=== PATIENT | male | born 1945 | race American Indian/Alaskan Native ===

== ENCOUNTER 2020-09-09 11:03 | Inpatient (IN) | payer MEDICARE, OTHER ==
[2020-09-09] MEDS ORDERED: SODIUM CHLORIDE 0.9% 500 ML 500 ML IV ONE (11:23)
--- NOTE | 2020-09-09 11:30 | Emergency Department Report ---
ED Syncope HPI - General Chief Complaint: Dizziness Stated Complaint: SYNCOPE Time Seen by Provider: 09/09/20 11:16 - History of Present Illness Initial Comments: Patient is 75 years old male with history of cardiac transplant in 2012 at [facility], myasthenia gravis. Patient brought to the emergency room via EMS from home for evaluation of 1 episode of syncope. Patient stated that he was sitting in the bathroom and when he stands up he is felt faint and about to fall but he did not. Patient stated that he felt lightheaded and had blurry vision. Patient stated that he still having dizziness but improved. Patient denied any chest pain however he complained of mild shortness of breath. Patient denied any headache, focal weakness numbness or tingling sensation. No bowel or bladder incontinence. Patient also reported no speech problem or ataxia. Stroke scale is 0. Timing/Prior Episodes: no prior history, single episode today Precipitating Factors: Positive: blurred vision, lightheadedness Context: standing Loss of Consciousness: no loss of consciousness Current Symptoms: dizziness, lightheadedness. denies: chest pain, diaphoresis, headache, injury, loss of bladder control, loss of bowel control, motionless, nausea, pale, shallow/rapid breathing, weak/absent pulse, weakness - Related Data Allergies/Adverse Reactions: Allergies furosemide [From Lasix] Allergy (Severe, Verified 09/09/20 11:24) Shortness of Breath Myasthenia gravis pt Sulfa (Sulfonamide Antibiotics) Allergy (Severe, Verified 09/09/20 11:24) Shortness of Breath Myasthenia Gravis pt aspirin Allergy (Intermediate, Verified 09/09/20 11:24) Bleeding ED Review of Systems ROS: Stated complaint: SYNCOPE Other details as noted in HPI Comment: All other systems reviewed and negative Constitutional: denies: chills, fever Respiratory: shortness of breath. denies: cough, SOB with exertion, wheezing Cardiovascular: denies: chest pain Gastrointestinal: denies: abdominal pain, nausea, vomiting Musculoskeletal: denies: back pain Neurological: denies: headache, weakness, numbness, paresthesias, abnormal gait ED Past Medical Hx - Social History Smoking Status: Never Smoker ED Physical Exam - General Limitations: Physical Limitation General appearance: alert, in no apparent distress - Head Head exam: Present: atraumatic, normocephalic, normal inspection - Eye Eye exam: Present: normal appearance, PERRL - ENT ENT exam: Present: normal exam, normal orophraynx, mucous membranes moist - Neck Neck exam: Present: normal inspection, full ROM. Absent: tenderness, meningismus - Respiratory Respiratory exam: Present: normal lung sounds bilaterally - Cardiovascular Cardiovascular Exam: Present: regular rate, normal rhythm, normal heart sounds - GI/Abdominal GI/Abdominal exam: Present: soft, normal bowel sounds. Absent: distended, tenderness, guarding, rebound, rigid, organomegaly, mass, bruit, pulsatile mass, hernia - Extremities Exam Extremities exam: Present: normal inspection, full ROM, normal capillary refill. Absent: tenderness - Back Exam Back exam: Present: normal inspection, full ROM. Absent: CVA tenderness (R), CVA tenderness (L) - Neurological Exam Neurological exam: Present: alert, oriented X3, CN II-XII intact, normal gait, reflexes normal. Absent: motor sensory deficit - Psychiatric Psychiatric exam: Present: normal mood - Skin Skin exam: Present: warm, intact, normal color ED Course Vital Signs 09/09/20 09/09/20 09/09/20 11:23 11:30 11:46 Pulse Rate 81 84 82 Respiratory 12 19 22 Rate Blood Pressure 102/73 108/66 O2 Sat by Pulse 98 99 Oximetry 09/09/20 09/09/20 09/09/20 12:02 12:16 12:30 Pulse Rate 82 79 81 Respiratory 31 H 14 14 Rate Blood Pressure 108/66 108/66 108/66 O2 Sat by Pulse 98 99 98 Oximetry 09/09/20 09/09/20 09/09/20 12:46 13:00 13:16 Pulse Rate 79 78 84 Respiratory 19 16 18 Rate Blood Pressure 108/66 116/82 116/82 O2 Sat by Pulse 97 98 98 Oximetry 09/09/20 09/09/20 09/09/20 13:30 13:46 14:00 Pulse Rate 77 75 74 Respiratory 21 18 16 Rate Blood Pressure 116/82 116/82 140/91 O2 Sat by Pulse 94 93 95 Oximetry 09/09/20 09/09/20 09/09/20 14:16 14:30 14:46 Pulse Rate 81 81 84 Respiratory 16 23 21 Rate Blood Pressure 140/91 140/91 140/91 O2 Sat by Pulse 98 98 96 Oximetry 09/09/20 15:04 Pulse Rate 94 H Respiratory Rate Blood Pressure 140/91 O2 Sat by Pulse Oximetry - Consultations Consultation #1: 09/09/20 15:45 I discussed the patient with ALLYSON Galvan with Dr. Bland, perioperative manager. She advised to admit the patient and they will follow up with the patient. ED Medical Decision Making - Lab Data Result diagrams: 09/09/20 12:22 09/09/20 12:22 - EKG Data -: EKG Interpreted by Me - Radiology Data Radiology results: report reviewed - Medical Decision Making Patient is 75 years old male with history of cardiac transplant in 2011 at [facility], myasthenia gravis. Patient brought to the emergency room via EMS from home for evaluation of 1 episode of syncope. Patient stated that he was sitting in the bathroom and when he stands up he is felt faint and about to fall but he did not. Patient stated that he felt lightheaded and had blurry vision. Patient stated that he still having dizziness but improved. Patient denied any chest pain however he complained of mild shortness of breath. Patient denied any headache, focal weakness numbness or tingling sensation. No bowel or bladder incontinence. Patient also reported no speech problem or ataxia. Stroke scale is 0. EKG showed no ST elevation. Labs reviewed and showed significantly elevated BNP of 39,000. Troponin also elevated. Creatinine and BUN are normal. Patient added that he has been having shortness of breath since Father's Day. He stated that his symptoms getting worse. Patient also stated that he did not have any shortness of breath since his cardiac surgery in 2011. I discussed the patient with Dr. Edwards perioperative manager at [facility]. He reviewed the patient record and stated that he did not have a cardiac transplant he had CABG. So patient will be admitted here to our hospital. I discussed the patient with Dr. Bland group, I spoke to Betty, nurse practitioner. She stated that they will follow up with the patient in the ER. I discussed the patient with Dr. Dickinson, he agreed to admit the patient to medical service for further management. Critical Care Time: Yes Critical care time in (mins) excluding proc time.: 30 Critical care attestation.: If time is entered above; I have spent that time in minutes in the direct care of this critically ill patient, excluding procedure time. ED Disposition Clinical Impression: Syncope, Elevated troponin, New onset of congestive heart failure Disposition: DC-09 OP ADMIT IP TO THIS HOSP Is pt being admited?: Yes Condition: Stable Instructions: Syncope (ED) Referrals: PRIMARY CARE, [Primary Care Provider] - 3-5 Days
--- NOTE | 2020-09-09 12:22 | XRay Report ---
CHEST 1 VIEW INDICATION: syncope. COMPARISON: None FINDINGS: SUPPORT DEVICES: None. HEART: Cardiomegaly with old CABG change. LUNGS/PLEURA: No acute air space or interstitial disease. ADDITIONAL FINDINGS: None. IMPRESSION: 1. No acute findings. Signer Name: Shree Stratton MD Signed: 09/09/2020 12:18 PM Workstation Name: [id number]
--- NOTE | 2020-09-09 12:30 | Cat Scan Report ---
CT head without contrast HISTORY: Syncope X3DAYS. TECHNIQUE: Axial imaging performed from the skull apex through the skull base without the use of con trast. All CT scans at this location are performed using CT dose reduction for ALARA by means of aut omated exposure control. COMPARISON: None FINDINGS: Parenchyma: No acute intracranial hemorrhage or parenchymal abnormality. Old lacunar infarct in the right basal ganglia. Ventricles: There is mild diffuse brain atrophy with commensurate ventricular enlargement which is l ikely age appropriate. Soft tissues: Soft tissues including the orbits appear normal. Bones: No acute osseous abnormality. Sinuses: Small mucous retention cyst in the left maxillary sinus. Remaining sinuses and mastoid air cells are clear. IMPRESSION: No acute abnormality. Signer Name: Shree Stratton MD Signed: 09/09/2020 12:25 PM Workstation Name: [id number]
[2020-09-09 12:32] LABS: Basophils % (Auto) 0.5 % (0.0-1.8); Eosinophils % (Auto) 0.6 % (0.0-4.3); Hematocrit 32.3 % (35.5-45.6); Hemoglobin 10.3 gm/dl (11.8-15.2); Lymphocytes # (Auto) 0.5 K/mm3 (1.2-5.4); Lymphocytes % (Auto) 7.8 % (13.4-35.0); Mean Corpuscular HGB Conc 32 % (32-34); Mean Corpuscular Volume 89 fl (84-94); Monocytes # (Auto) 0.6 K/mm3 (0.0-0.8); Monocytes % (Auto) 10.8 % (0.0-7.3); Platelet Count 170 K/mm3 (140-440); Red Blood Count 3.62 M/mm3 (3.65-5.03)
[2020-09-09 12:40] LABS: Red Cell Distribution Width 20.8 % (13.2-15.2)
[2020-09-09 12:42] LABS: INR 1.53 (0.87-1.13)
[2020-09-09 12:43] LABS: Partial Thromboplastin Time 37.1 Sec. (24.2-36.6)
[2020-09-09 13:31] LABS: Chol/HDL Ratio 2.44 %
--- NOTE | 2020-09-09 15:34 | Cat Scan Report ---
CTA CHEST WITH IV CONTRAST INDICATION: Syncope, elevated D-dimer. TECHNIQUE: Axial CT images were obtained through the chest after injection of IV contrast. 3 plane MIP reconstru ctions were produced. All CT scans at this location are performed using CT dose reduction for ALARA b y means of automated exposure control. COMPARISON: None available. FINDINGS: PULMONARY ARTERIES: No pulmonary emboli. THORACIC AORTA: No acute abnormality. HEART: Moderately enlarged CORONARY ARTERIES: Sternotomy and CABG PLEURA: Small left pleural effusion No pneumothorax. LYMPH NODES: No significant adenopathy. LUNGS: No acute air space or interstitial disease. Calcified left upper lobe granuloma. ADDITIONAL FINDINGS: Moderate elevation left hemidiaphragm UPPER ABDOMEN: 6.7 cm hepatic cyst. SKELETAL STRUCTURES: No significant osseous abnormality. IMPRESSION: 1. No CT evidence for pulmonary embolism. 2. Cardiomegaly with small left pleural effusion. 3. Simple 6.7 cm hepatic cyst Signer Name: Mike Thomas MD Signed: 09/09/2020 3:29 PM Workstation Name: [id number]
[2020-09-09] MEDS ORDERED: ACETAMINOPHEN 325 MG TAB PO PRN (18:07)
[2020-09-09] MEDS ORDERED: ALBUTEROL 2.5 MG/3 ML NEBU IH PRN (18:07)
[2020-09-09] MEDS ORDERED: ONDANSETRON 4 MG/2 ML INJ IV PRN (18:07)
--- NOTE | 2020-09-09 18:12 | History and Physical Report ---
History of Present Illness Chief complaint: I feel weak and then I passed out History of present illness: 75 YO Male with MG, CAD S/P CABG presents to ED for evaluation. Patient reports "I got weak and I passed out." Patient states that shortly after going to the restroom and having a bowel movement he clark from a seated to a standing position and experienced a sudden onset of dizziness and subsequently lost consc iousness. EMS was notified and upon arrival the patient was found to be in distress and subsequently transported to [facility] for further care and evaluation of the aforementioned symptoms. The patient was seen and evaluated in the emergency department. All lab and imaging studies reviewed. Patient found to have orthostatic hypotension. Patient also found to have lab findings as well as clinical symptoms consistent with CHF decompensation. Patient placed in observation status and admitted to telemetry and initiated on CHF protocol. Cardiology team consulted. Patient denies fever, chills, chest pain, palpitation, productive cough, skin rash, recent ill contacts, or known exposure to COVID-19. No prior admission for review. No medication listed at time of admission for reconciliation. Advanced care planning conducted in ED. Past History Past Medical History: CAD Past Surgical History: CABG Social history: single. 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) Family history: hypertension Medications and Allergies Allergies Allergy/AdvReac Type Severity Reaction Status Date / Time furosemide [From Lasix] Allergy Severe Shortness Verified 09/09/20 11:24 of Breath Sulfa (Sulfonamide Allergy Severe Shortness Verified 09/09/20 11:24 Antibiotics) of Breath aspirin Allergy Intermediate Bleeding Verified 09/09/20 11:24 Active Meds: Active Medications Acetaminophen (Acetaminophen 325 Mg Tab) 650 mg PO Q4H PRN PRN Reason: Pain MILD(1-3)/Fever >100.5/ESQUIVEL Albuterol (Albuterol 2.5 Mg/3 Ml Nebu) 2.5 mg IH Q4HRT PRN PRN Reason: Shortness Of Breath Furosemide (Furosemide 20 Mg/2 Ml Inj) 20 mg IV BID@0600,1800 PANKAJ Hydromorphone HCl (Hydromorphone 1 Mg/1 Ml Inj) 0.5 mg IV Q12H PRN PRN Reason: Pain , Severe (7-10) Ondansetron HCl (Ondansetron 4 Mg/2 Ml Inj) 4 mg IV Q8H PRN PRN Reason: Nausea And Vomiting Oxycodone/Acetaminophen (Oxycodone /Acetaminophen 5-325mg Tab) 1 tab PO Q8H PRN PRN Reason: Pain, Moderate (4-6) Sodium Chloride (Sodium Chloride 0.9% 10 Ml Flush Syringe) 10 ml IV BID PANKAJ Sodium Chloride (Sodium Chloride 0.9% 10 Ml Flush Syringe) 10 ml IV PRN PRN PRN Reason: LINE FLUSH Review of Systems Constitutional: no weight loss, no weight gain, no fever, no chills Ears, nose, mouth and throat: no ear pain, no ear discharge, no tinnitis, no nose pain, no nasal congestion Cardiovascular: syncope, no chest pain, no claudication, no high blood pressure Respiratory: no cough, no cough with sputum, no excessive sputum, no hemoptysis Gastrointestinal: no abdominal pain, no nausea, no vomiting, no diarrhea, no change in bowel habits Genitourinary Male: no hematuria, no flank pain, no discharge, no nocturia Musculoskeletal: no neck stiffness, no shooting arm pain, no low back pain, no shooting leg pain, no leg numbness/tingling Integumentary: no rash, no pruritis, no sores Neurological: no head injury, no paralysis, no weakness, no tingling, no syncope Psychiatric: no anxiety, no change in sleep habits, no insomnia, no hypersomnia, no change in appetite, no change in libido Endocrine: no cold intolerance, no polyphagia, no polyuria, no nocturia Hematologic/Lymphatic: no easy bruising, no easy bleeding Allergic/Immunologic: no allergic rhinitis, no wheezing Exam - Constitutional Vitals: Temp Pulse Resp BP Pulse Ox 94 H 21 140/91 96 09/09/20 15:04 09/09/20 14:46 09/09/20 15:04 09/09/20 14:46 General appearance: Present: mild distress - EENT Eyes: Present: PERRL ENT: hearing intact, clear oral mucosa - Neck Neck: Present: supple, normal ROM - Respiratory Respiratory effort: normal Respiratory: bilateral: CTA - Cardiovascular Heart Sounds: Present: S1 & S2. Absent: rub, click - Extremities Extremities: pulses symmetrical, No edema Peripheral Pulses: within normal limits - Abdominal General gastrointestinal: Present: soft, non-tender, non-distended, normal bowel sounds Male genitourinary: Present: normal - Integumentary Integumentary: Present: clear, warm, dry - Musculoskeletal Musculoskeletal: gait normal, strength equal bilaterally - Psychiatric Psychiatric: appropriate mood/affect, intact judgment & insight - Neurologic Neurologic: CNII-XII intact, moves all extremities HEART Score - HEART Score Troponin: Troponin T 0.061 ng/mL (0.00-0.029) H 09/09/20 12:22 Results - Labs CBC & Chem 7: 09/09/20 12:22 09/09/20 12:22 Labs: Abnormal lab results 09/09/20 09/09/20 09/09/20 Range/Units 12:22 12:22 12:22 RBC 3.62 L (3.65-5.03) M/mm3 Hgb 10.3 L (11.8-15.2) gm/dl Hct 32.3 L (35.5-45.6) % RDW 20.8 H (13.2-15.2) % Lymph % (Auto) 7.8 L (13.4-35.0) % [place] % (Auto) 10.8 H (0.0-7.3) % Lymph # (Auto) 0.5 L (1.2-5.4) K/mm3 Seg Neutrophils % 80.3 H (40.0-70.0) % PT 19.0 H (12.2-14.9) Sec. INR 1.53 H (0.87-1.13) APTT 37.1 H (24.2-36.6) Sec. D-Dimer 1679.87 H (0-234) ng/mlDDU Troponin T 0.061 H (0.00-0.029) ng/mL NT-Pro-B Natriuret Pep (0-900) pg/mL HDL Cholesterol 69 H (40-59) mg/dL 09/09/20 Range/Units 12:22 RBC (3.65-5.03) M/mm3 Hgb (11.8-15.2) gm/dl Hct (35.5-45.6) % RDW (13.2-15.2) % Lymph % (Auto) (13.4-35.0) % [place] % (Auto) (0.0-7.3) % Lymph # (Auto) (1.2-5.4) K/mm3 Seg Neutrophils % (40.0-70.0) % PT (12.2-14.9) Sec. INR (0.87-1.13) APTT (24.2-36.6) Sec. D-Dimer (0-234) ng/mlDDU Troponin T (0.00-0.029) ng/mL NT-Pro-B Natriuret Pep 71241 H (0-900) pg/mL HDL Cholesterol (40-59) mg/dL Assessment and Plan - Patient Problems (1) New onset of congestive heart failure Current Visit: Yes Status: Acute Plan to address problem: CHF protocol: Strict I/O, monitor urine output every shift, daily weight, afterload reduction, blood pressure control, echocardiogram ordered and is pending at time of admission, cardiology team consulted, thyroid panel, magnesium level. (2) CAD (coronary artery disease) Current Visit: Yes Status: Acute Qualifiers: Associated angina: without angina Plan to address problem: Risk factor reduction, supportive care (3) NSTEMI (non-ST elevated myocardial infarction) Current Visit: Yes Status: Acute Plan to address problem: Type II non-ST elevation IN: Supportive care, admit to telemetry, serial cardiac enzymes, EKG, remote telemetry, cardiology team consulted. (4) DVT prophylaxis Current Visit: Yes Status: Acute Plan to address problem: SCDs bilateral lower extremities while in bed, patient is ambulatory, prophylactic anticoagulation (5) Advance care planning Current Visit: Yes Status: Acute Plan to address problem: Disease education conducted, care plan discussed, diagnosis discussed, prognosis discussed, patient is full code, patient knowledges understanding and agreement with care plan, +30 minutes.
[2020-09-09 19:06] LABS: Free T4 (Free Thyroxine) 1.49 ng/dL (0.76-1.46)
[2020-09-09] MEDS: HEPARIN 5,000 UNIT/1 ML VIAL SUB-Q SCH (22:11)
[2020-09-09] MEDS: HYDROmorphone 1 MG/1 ML INJ IV PRN (23:54)
[2020-09-10 05:21] LABS: BUN/Creatinine Ratio 11; Blood Urea Nitrogen 12 mg/dL (9-20); Calcium 8.6 mg/dL (8.4-10.2); Hemolysis Index 3
[2020-09-10] MEDS: FUROSEMIDE 20 MG/2 ML INJ IV SCH ×2 (06:07→06:11)
--- NOTE | 2020-09-10 09:52 | Progress Note ---
Assessment and Plan Assessment and plan: Acute on chronic systolic heart failure. Patient with previous diagnosis and followed at the [facility]. Coronary artery disease NSTEMI Autonomic imbalance/syncope. Right shoulder pain 09/10/2020. Follow-up echocardiogram. Cardiology consultation pending. BNP significantly elevated at 39,[address] scan reveals only small left pleural effusion. Elevated D-dimer but CTA negative for PE. Etiology of syncope secondary to orthostasis and vasovagal from bowel movement. Await cardiology recommendations. Check right shoulder x-ray. History Interval history: No new issues overnight. Hospitalist Physical - Constitutional Vitals: Temp Pulse Resp BP Pulse Ox 98.2 F 92 H 16 135/92 96 09/10/20 08:10 09/10/20 08:18 09/10/20 08:10 09/10/20 08:10 09/10/20 08:10 General appearance: Present: no acute distress - EENT Eyes: Present: PERRL, EOM intact ENT: hearing intact, clear oral mucosa, dentition normal - Neck Neck: Present: supple, normal ROM - Respiratory Respiratory effort: normal Respiratory: bilateral: CTA - Cardiovascular Rhythm: regular Heart Sounds: Present: S1 & S2. Absent: gallop, rub - Extremities Extremities: no ischemia, No edema, Full ROM - Abdominal General gastrointestinal: soft, non-tender, non-distended, normal bowel sounds - Integumentary Integumentary: Present: clear, warm, dry - Neurologic Neurologic: CNII-XII intact, moves all extremities HEART Score - HEART Score Troponin: Troponin T 0.061 ng/mL (0.00-0.029) H 09/09/20 12:22 Results - Labs CBC & Chem 7: 09/09/20 12:22 09/10/20 04:15 Labs: Laboratory Last Values WBC 5.8 K/mm3 (4.5-11.0) 09/09/20 12:22 RBC 3.62 M/mm3 (3.65-5.03) L 09/09/20 12:22 Hgb 10.3 gm/dl (11.8-15.2) L 09/09/20 12:22 Hct 32.3 % (35.5-45.6) L 09/09/20 12:22 MCV 89 fl (84-94) 09/09/20 12:22 MCH 29 pg (28-32) 09/09/20 12:22 MCHC 32 % (32-34) 09/09/20 12:22 RDW 20.8 % (13.2-15.2) H 09/09/20 12:22 Plt Count 170 K/mm3 (140-440) 09/09/20 12:22 Lymph % (Auto) 7.8 % (13.4-35.0) L 09/09/20 12:22 [place] % (Auto) 10.8 % (0.0-7.3) H 09/09/20 12:22 Eos % (Auto) 0.6 % (0.0-4.3) 09/09/20 12:22 Baso % (Auto) 0.5 % (0.0-1.8) 09/09/20 12:22 Lymph # (Auto) 0.5 K/mm3 (1.2-5.4) L 09/09/20 12:22 [place] # (Auto) 0.6 K/mm3 (0.0-0.8) 09/09/20 12:22 Eos # (Auto) 0.0 K/mm3 (0.0-0.4) 09/09/20 12:22 Baso # (Auto) 0.0 K/mm3 (0.0-0.1) 09/09/20 12:22 Seg Neutrophils % 80.3 % (40.0-70.0) H 09/09/20 12:22 Seg Neutrophils # 4.7 K/mm3 (1.8-7.7) 09/09/20 12:22 PT 19.0 Sec. (12.2-14.9) H 09/09/20 12:22 INR 1.53 (0.87-1.13) H 09/09/20 12:22 APTT 37.1 Sec. (24.2-36.6) H 09/09/20 12:22 D-Dimer 1679.87 ng/mlDDU (0-234) H 09/09/20 12:22 Sodium 143 mmol/L (137-145) 09/10/20 04:15 Potassium 3.7 mmol/L (3.6-5.0) 09/10/20 04:15 Chloride 108.0 mmol/L (98-107) H 09/10/20 04:15 Carbon Dioxide 25 mmol/L (22-30) 09/10/20 04:15 Anion Gap 14 mmol/L 09/10/20 04:15 BUN 12 mg/dL (9-20) 09/10/20 04:15 Creatinine 1.1 mg/dL (0.8-1.3) 09/10/20 04:15 Estimated GFR > 60 ml/min 09/10/20 04:15 BUN/Creatinine Ratio 11 % 09/10/20 04:15 Glucose 78 mg/dL (75-100) 09/10/20 04:15 Calcium 8.6 mg/dL (8.4-10.2) 09/10/20 04:15 Magnesium 1.90 mg/dL (1.7-2.3) 09/09/20 18:19 Troponin T 0.061 ng/mL (0.00-0.029) H 09/09/20 12:22 NT-Pro-B Natriuret Pep 84218 pg/mL (0-900) H 09/09/20 12:22 Triglycerides 80 mg/dL (2-149) 09/09/20 12:22 Cholesterol 169 mg/dL (50-199) 09/09/20 12:22 LDL Cholesterol Direct 92 mg/dL (50-130) 09/09/20 12:22 HDL Cholesterol 69 mg/dL (40-59) H 09/09/20 12:22 Cholesterol/HDL Ratio 2.44 % 09/09/20 12:22 TSH 1.530 mlU/mL (0.270-4.200) 09/09/20 18:19 Free T4 1.49 ng/dL (0.76-1.46) H 09/09/20 18:19 [place]/IV: Voiding Method Urinal Active Medications - Current Medications Current Medications: Generic Name Dose Route Start Last Admin Trade Name Freq PRN Reason Stop Dose Admin Acetaminophen 650 mg 09/09/20 18:07 Acetaminophen 325 Mg Tab PO Q4H PRN Pain MILD(1-3)/Fever >100.5/ESQUIVEL Albuterol 2.5 mg 09/09/20 18:07 Albuterol 2.5 Mg/3 Ml Nebu IH Q4HRT PRN Shortness Of Breath Heparin Sodium (Porcine) 5,000 unit 09/09/20 22:00 09/09/20 22:11 Heparin 5,000 Unit/1 Ml Vial SUB-Q 5,000 unit Q12HR PANKAJ Administration Hydromorphone HCl 0.5 mg 09/09/20 18:07 09/09/20 23:54 Hydromorphone 1 Mg/1 Ml Inj IV 0.5 mg Q12H PRN Administration Pain , Severe (7-10) Ondansetron HCl 4 mg 09/09/20 18:07 Ondansetron 4 Mg/2 Ml Inj IV Q8H PRN Nausea And Vomiting Oxycodone/Acetaminophen 1 tab 09/09/20 18:07 Oxycodone /Acetaminophen 5-325mg Tab PO Q8H PRN Pain, Moderate (4-6) Sodium Chloride 10 ml 09/09/20 22:00 09/09/20 22:55 Sodium Chloride 0.9% 10 Ml Flush Syringe IV 10 ml BID PANKAJ Administration Sodium Chloride 10 ml 09/09/20 18:07 Sodium Chloride 0.9% 10 Ml Flush Syringe IV PRN PRN LINE FLUSH
[2020-09-10] MEDS: HEPARIN 5,000 UNIT/1 ML VIAL SUB-Q SCH ×2 (10:37→22:01)
--- NOTE | 2020-09-10 10:57 | XRay Report ---
RIGHT SHOULDER 3 VIEWS INDICATION: Right shoulder pain. COMPARISON: None. IMPRESSION: The right humeral head appears slightly high riding with respect to the glenoid which co uld represent a chronic rotator cuff tear. Mild osteoarthritic changes are noted at the right should er. No acute osseous injury or bone lesion is detected. The soft tissues are unremarkable. If further evaluation is needed, MRI right shoulder without contrast or MRI right shoulder arthrogram should pr ovide the most information. Signer Name: Vito Simental Jr, MD Signed: 09/10/2020 10:53 AM Workstation Name: [id number]
--- NOTE | 2020-09-10 11:48 | Consultation ---
History of Present Illness Consult date: 09/10/20 Consult reason: syncope History of present illness: 75-year old male admitted for near syncope. Patient reports dizziness and weakness after standing from the commode. Denies loss of consciousness. Denies chest pain, denies unusual shortness of breath, and denies palpitations. EMS was called and he was brought in for evaluation. Chest x-ray shows cardiomegaly but no evidence of interstitial edema. CTA of the chest reports no evidence of pulm onary embolism. Patient has multiple medical problems and is followed by the [place]. He has a history of ischemic cardiomyopathy, coronary artery diseae with remote 3 vessel bypass grafting. He has declined recommendations for an ICD implant for primary prevention. He had no recent cardiac workup. He in on chronic prednisone for Myasthenia gravis. Co-morbidities includes Hypertension, he uses Cpap for Sleep apnea and Pulmonary embolism and DVT for which he takes Eliquis for anticoagulation. Past History Past Medical History: CAD, hypertension, other (Sleep apnea, Myasthenia gravis, Pulmonary embolism and DVT ) Past Surgical History: CABG Social history: single. 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) Family history: hypertension Medications and Allergies Allergies Allergy/AdvReac Type Severity Reaction Status Date / Time furosemide [From Lasix] Allergy Severe Shortness Verified 09/09/20 11:24 of Breath Sulfa (Sulfonamide Allergy Severe Shortness Verified 09/09/20 11:24 Antibiotics) of Breath aspirin Allergy Intermediate Bleeding Verified 09/09/20 11:24 Home Medications Medication Instructions Recorded Confirmed Last Taken Type No Known Home Medications [No 09/10/20 09/10/20 Unknown History Reported Home Medications] Active Meds: Active Medications Acetaminophen (Acetaminophen 325 Mg Tab) 650 mg PO Q4H PRN PRN Reason: Pain MILD(1-3)/Fever >100.5/ESQUIVEL Albuterol (Albuterol 2.5 Mg/3 Ml Nebu) 2.5 mg IH Q4HRT PRN PRN Reason: Shortness Of Breath Heparin Sodium (Porcine) (Heparin 5,000 Unit/1 Ml Vial) 5,000 unit SUB-Q Q12HR PANKAJ Last Admin: 09/10/20 10:37 Dose: 5,000 unit Documented by: Hydromorphone HCl (Hydromorphone 1 Mg/1 Ml Inj) 0.5 mg IV Q12H PRN PRN Reason: Pain , Severe (7-10) Last Admin: 09/09/20 23:54 Dose: 0.5 mg Documented by: Ondansetron HCl (Ondansetron 4 Mg/2 Ml Inj) 4 mg IV Q8H PRN PRN Reason: Nausea And Vomiting Oxycodone/Acetaminophen (Oxycodone /Acetaminophen 5-325mg Tab) 1 tab PO Q8H PRN PRN Reason: Pain, Moderate (4-6) Sodium Chloride (Sodium Chloride 0.9% 10 Ml Flush Syringe) 10 ml IV BID PANKAJ Last Admin: 09/10/20 10:37 Dose: 10 ml Documented by: Sodium Chloride (Sodium Chloride 0.9% 10 Ml Flush Syringe) 10 ml IV PRN PRN PRN Reason: LINE FLUSH Review of Systems Cardiovascular: dyspnea on exertion, no chest pain, no palpitations, no edema, no syncope, no shortness of breath Physical Examination Vital Signs Pulse Resp 81 12 09/09/20 11:23 09/09/20 11:23 General appearance: no acute distress HEENT: Positive: PERRL Neck: Positive: trachea midline Cardiac: Positive: Reg Rate and Rhythm Lungs: Positive: Normal Breath Sounds Neuro: Positive: Grossly Intact Extremities: Absent: edema Results 09/09/20 12:22 09/10/20 04:15 Coagulation 09/09/20 Range/Units 12:22 PT 19.0 H (12.2-14.9) Sec. INR 1.53 H (0.87-1.13) APTT 37.1 H (24.2-36.6) Sec. Lipids 09/09/20 Range/Units 12:22 Triglycerides 80 (2-149) mg/dL Cholesterol 169 (50-199) mg/dL HDL Cholesterol 69 H (40-59) mg/dL Cholesterol/HDL Ratio 2.44 % CBC 09/09/20 Range/Units 12:22 WBC 5.8 (4.5-11.0) K/mm3 RBC 3.62 L (3.65-5.03) M/mm3 Hgb 10.3 L (11.8-15.2) gm/dl Hct 32.3 L (35.5-45.6) % Plt Count 170 (140-440) K/mm3 Lymph # (Auto) 0.5 L (1.2-5.4) K/mm3 [place] # (Auto) 0.6 (0.0-0.8) K/mm3 Eos # (Auto) 0.0 (0.0-0.4) K/mm3 Baso # (Auto) 0.0 (0.0-0.1) K/mm3 Comprehensive Metabolic Panel 09/09/20 09/10/20 Range/Units 12:22 04:15 Sodium 144 143 (137-145) mmol/L Potassium 4.0 3.7 (3.6-5.0) mmol/L Chloride 106.9 108.0 H (98-107) mmol/L Carbon Dioxide 27 25 (22-30) mmol/L BUN 16 12 (9-20) mg/dL Creatinine 1.2 1.1 (0.8-1.3) mg/dL Glucose 94 78 (75-100) mg/dL Calcium 9.0 8.6 (8.4-10.2) mg/dL Assessment and Plan Near syncope likely vasovagal Hx of Ischemic CMP declined recommendations for ICD implant in the past Hx of CAD with 3v CABG in 2011 [facility] allergy Myasthenia gravis on chronic prednisone Hypertension Sleep apnea Hx of Pulmonary embolism and DVT Eliquis for anticoagulation. Resume medical therapy for ischemic cardiomyopathy and coronary artery disease. Will get an echocardiogram for LVEF assessment.
[2020-09-10] MEDS: HYDROmorphone 1 MG/1 ML INJ IV PRN (21:59)
[2020-09-10] MEDS: carvediloL 6.25 MG TAB PO SCH (22:00)
--- NOTE | 2020-09-11 08:44 | Progress Note ---
Assessment and Plan Assessment and plan: Acute on chronic systolic heart failure. Patient with previous diagnosis and followed at the [place]. Coronary artery disease. History of CABG X3 2012 NSTEMI Ischemic cardiomyopathy. EF 25% Autonomic imbalance/syncope. Right shoulder pain 09/10/2020. Follow-up echocardiogram. Cardiology consultation pending. BNP significantly elevated at 39,[address] scan reveals only small left pleural effusion. Elevated D-dimer but CTA negative for PE. Etiology of syncope secondary to orthostasis and vasovagal from bowel movement. Await cardiology recommendations. Check right shoulder x-ray. 09/11/2020. Continue guideline directed medical therapy for coronary artery disease and acute on chronic systolic heart failure. Cardiology recommends outpatient 30-day event monitor for possible ventricular dysrhythmia. Right shoulder x-ray reveals possible rotator cuff tear. MRI of the right shoulder as an outpatient History Interval history: No new issues overnight. Hospitalist Physical - Constitutional Vitals: Temp Pulse Resp BP Pulse Ox 98.4 F 92 H 18 140/100 96 09/11/20 04:28 09/11/20 08:32 09/11/20 04:28 09/11/20 04:28 09/11/20 04:28 General appearance: Present: no acute distress - EENT Eyes: Present: PERRL, EOM intact ENT: hearing intact, clear oral mucosa, dentition normal - Neck Neck: Present: supple, normal ROM - Respiratory Respiratory effort: normal Respiratory: bilateral: CTA - Cardiovascular Rhythm: regular Heart Sounds: Present: S1 & S2. Absent: gallop, rub - Extremities Extremities: no ischemia, No edema, Full ROM - Abdominal General gastrointestinal: soft, non-tender, non-distended, normal bowel sounds - Integumentary Integumentary: Present: clear, warm, dry - Neurologic Neurologic: CNII-XII intact, moves all extremities HEART Score - HEART Score Troponin: Troponin T 0.061 ng/mL (0.00-0.029) H 09/09/20 12:22 Results - Labs CBC & Chem 7: 09/09/20 12:22 09/10/20 04:15 Labs: Laboratory Last Values WBC 5.8 K/mm3 (4.5-11.0) 09/09/20 12:22 RBC 3.62 M/mm3 (3.65-5.03) L 09/09/20 12:22 Hgb 10.3 gm/dl (11.8-15.2) L 09/09/20 12:22 Hct 32.3 % (35.5-45.6) L 09/09/20 12:22 MCV 89 fl (84-94) 09/09/20 12:22 MCH 29 pg (28-32) 09/09/20 12:22 MCHC 32 % (32-34) 09/09/20 12:22 RDW 20.8 % (13.2-15.2) H 09/09/20 12:22 Plt Count 170 K/mm3 (140-440) 09/09/20 12:22 Lymph % (Auto) 7.8 % (13.4-35.0) L 09/09/20 12:22 [place] % (Auto) 10.8 % (0.0-7.3) H 09/09/20 12:22 Eos % (Auto) 0.6 % (0.0-4.3) 09/09/20 12:22 Baso % (Auto) 0.5 % (0.0-1.8) 09/09/20 12:22 Lymph # (Auto) 0.5 K/mm3 (1.2-5.4) L 09/09/20 12:22 [place] # (Auto) 0.6 K/mm3 (0.0-0.8) 09/09/20 12:22 Eos # (Auto) 0.0 K/mm3 (0.0-0.4) 09/09/20 12:22 Baso # (Auto) 0.0 K/mm3 (0.0-0.1) 09/09/20 12:22 Seg Neutrophils % 80.3 % (40.0-70.0) H 09/09/20 12:22 Seg Neutrophils # 4.7 K/mm3 (1.8-7.7) 09/09/20 12:22 PT 19.0 Sec. (12.2-14.9) H 09/09/20 12:22 INR 1.53 (0.87-1.13) H 09/09/20 12:22 APTT 37.1 Sec. (24.2-36.6) H 09/09/20 12:22 D-Dimer 1679.87 ng/mlDDU (0-234) H 09/09/20 12:22 Sodium 143 mmol/L (137-145) 09/10/20 04:15 Potassium 3.7 mmol/L (3.6-5.0) 09/10/20 04:15 Chloride 108.0 mmol/L (98-107) H 09/10/20 04:15 Carbon Dioxide 25 mmol/L (22-30) 09/10/20 04:15 Anion Gap 14 mmol/L 09/10/20 04:15 BUN 12 mg/dL (9-20) 09/10/20 04:15 Creatinine 1.1 mg/dL (0.8-1.3) 09/10/20 04:15 Estimated GFR > 60 ml/min 09/10/20 04:15 BUN/Creatinine Ratio 11 % 09/10/20 04:15 Glucose 78 mg/dL (75-100) 09/10/20 04:15 Calcium 8.6 mg/dL (8.4-10.2) 09/10/20 04:15 Magnesium 1.90 mg/dL (1.7-2.3) 09/09/20 18:19 Troponin T 0.061 ng/mL (0.00-0.029) H 09/09/20 12:22 NT-Pro-B Natriuret Pep 49250 pg/mL (0-900) H 09/09/20 12:22 Triglycerides 80 mg/dL (2-149) 09/09/20 12:22 Cholesterol 169 mg/dL (50-199) 09/09/20 12:22 LDL Cholesterol Direct 92 mg/dL (50-130) 09/09/20 12:22 HDL Cholesterol 69 mg/dL (40-59) H 09/09/20 12:22 Cholesterol/HDL Ratio 2.44 % 09/09/20 12:22 TSH 1.530 mlU/mL (0.270-4.200) 09/09/20 18:19 Free T4 1.49 ng/dL (0.76-1.46) H 09/09/20 18:19 [place]/IV: Voiding Method Urinal Active Medications - Current Medications Current Medications: Generic Name Dose Route Start Last Admin Trade Name Freq PRN Reason Stop Dose Admin Acetaminophen 650 mg 09/09/20 18:07 Acetaminophen 325 Mg Tab PO Q4H PRN Pain MILD(1-3)/Fever >100.5/ESQUIVEL Albuterol 2.5 mg 09/09/20 18:07 Albuterol 2.5 Mg/3 Ml Nebu IH Q4HRT PRN Shortness Of Breath Carvedilol 6.25 mg 09/10/20 22:00 09/10/20 22:00 Carvedilol 6.25 Mg Tab PO 6.25 mg BID PANKAJ Administration Clopidogrel Bisulfate 75 mg 09/11/20 10:00 Clopidogrel 75 Mg Tab PO QDAY PANKAJ Heparin Sodium (Porcine) 5,000 unit 09/09/20 22:00 09/10/20 22:01 Heparin 5,000 Unit/1 Ml Vial SUB-Q 5,000 unit Q12HR PANKAJ Administration Hydromorphone HCl 0.5 mg 09/09/20 18:07 09/10/20 21:59 Hydromorphone 1 Mg/1 Ml Inj IV 0.5 mg Q12H PRN Administration Pain , Severe (7-10) Lisinopril 5 mg 09/11/20 10:00 Lisinopril 5 Mg Tab PO QDAY PANKAJ Ondansetron HCl 4 mg 09/09/20 18:07 Ondansetron 4 Mg/2 Ml Inj IV Q8H PRN Nausea And Vomiting Oxycodone/Acetaminophen 1 tab 09/09/20 18:07 Oxycodone /Acetaminophen 5-325mg Tab PO Q8H PRN Pain, Moderate (4-6) Sodium Chloride 10 ml 09/09/20 22:00 09/10/20 21:59 Sodium Chloride 0.9% 10 Ml Flush Syringe IV 10 ml BID PANKAJ Administration Sodium Chloride 10 ml 09/09/20 18:07 Sodium Chloride 0.9% 10 Ml Flush Syringe IV PRN PRN LINE FLUSH
--- NOTE | 2020-09-11 10:00 | Progress Note ---
Assessment and Plan 1. Status post syncope and collapse 2. Chronic combined systolic and diastolic heart failure 3. Dilated ischemic cardiomyopathy LV ejection fraction 25% 4. Coronary artery disease status post coronary artery bypass surgery 5. Essential hypertension 6. Obstructive sleep apnea 7. History of myasthenia gravis Plan. History of syncope after trying to move his bowel strongly suggest a vasovagal episode however given ischemic coronary artery disease and ischemic cardiomyopathy a malignant or potentially malignant cardiac arrhythmia cannot be absolutely excluded further evaluation indicated will recommend patient to have a Lexiscan thallium to assess for ischemic coronary artery disease. And will recommend patient to be evaluated for an ICD. Subjective Date of service: 09/11/20 Interval history: No cardiac symptoms. Objective Vital Signs Temp Pulse Resp BP Pulse Ox 09/11/20 08:32 92 H 09/11/20 04:28 98.4 F 92 H 18 140/100 96 09/11/20 00:00 68 09/10/20 23:14 98.3 F 81 18 129/79 95 09/10/20 22:00 97 H 141/100 09/10/20 21:23 98 09/10/20 19:44 99.2 F 97 H 20 141/100 96 09/10/20 16:21 97 H 09/10/20 16:13 98.2 F 87 16 137/95 94 09/10/20 11:39 98.0 F 97 H 18 151/100 94 09/10/20 10:25 97 - Physical Examination HEENT: Positive: PERRL Neck: Positive: trachea midline Cardiac: Positive: Regular Rate, S1/S2, S3, Dilated, Laterally Displaced Lungs: Positive: clear to auscultation, No Wheeze, Rales, Rhonchi Neuro: Positive: Grossly Intact Abdomen: Positive: Unremarkable, Active Bowel Sounds Extremities: Absent: edema - EKG Sinus rhythms and dysrhythmias: sinus rhythm
[2020-09-11] MEDS: carvediloL 6.25 MG TAB PO SCH ×2 (10:34→21:07)
[2020-09-11] MEDS: HEPARIN 5,000 UNIT/1 ML VIAL SUB-Q SCH ×2 (10:34→21:07)
[2020-09-11] MEDS: LISINOPRIL 5 MG TAB PO SCH (10:35)
[2020-09-11] MEDS: CLOPIDOGREL 75 MG TAB PO SCH (10:35)
[2020-09-11] MEDS: oxyCODONE /ACETAMINOPHEN 5-325MG TAB PO PRN (16:00)
[2020-09-11] MEDS: HYDROmorphone 1 MG/1 ML INJ IV PRN (20:40)
--- NOTE | 2020-09-12 09:55 | Progress Note ---
Assessment and Plan 1. Status post syncope and collapse 2. Chronic combined systolic and diastolic heart failure 3. Dilated ischemic cardiomyopathy LV ejection fraction 25% 4. Coronary artery disease status post coronary artery bypass surgery 5. Essential hypertension 6. Obstructive sleep apnea 7. History of myasthenia gravis Plan. History of syncope after trying to move his bowel strongly suggest a vasovagal episode however given ischemic coronary artery disease and ischemic cardiomyopathy a malignant or potentially malignant cardiac arrhythmia cannot be absolutely excluded further evaluation indicated will recommend patient to have a Lexiscan thallium to assess for ischemic coronary artery disease. And will recommend patient to be evaluated electively for an ICD. Subjective Date of service: 09/12/20 Interval history: No cardiac symptoms. Objective Vital Signs Temp Pulse Resp BP Pulse Ox 09/12/20 03:56 97.5 F L 87 18 146/94 86 09/11/20 23:31 98.4 F 76 20 134/88 98 09/11/20 21:07 60 126/82 09/11/20 20:20 78 09/11/20 20:11 97.5 F L 60 16 126/82 100 09/11/20 16:01 92 H 09/11/20 15:54 98.4 F 71 20 135/91 98 - Physical Examination HEENT: Positive: PERRL Neck: Positive: trachea midline Cardiac: Positive: Regular Rate, S1/S2, S3, PMI, Laterally Displaced. Negative: S4 Lungs: Positive: clear to auscultation, No Wheeze, Rales, Rhonchi Neuro: Positive: Grossly Intact Abdomen: Positive: Unremarkable, Active Bowel Sounds Extremities: Absent: edema - EKG Sinus rhythms and dysrhythmias: sinus rhythm
[2020-09-12] MEDS: oxyCODONE /ACETAMINOPHEN 5-325MG TAB PO PRN (09:57)
[2020-09-12] MEDS: LISINOPRIL 5 MG TAB PO SCH (09:58)
[2020-09-12] MEDS: carvediloL 6.25 MG TAB PO SCH ×2 (09:58→21:47)
[2020-09-12] MEDS: CLOPIDOGREL 75 MG TAB PO SCH (09:58)
[2020-09-12] MEDS: HEPARIN 5,000 UNIT/1 ML VIAL SUB-Q SCH ×2 (09:58→21:47)
--- NOTE | 2020-09-12 10:14 | Progress Note ---
Assessment and Plan Assessment and plan: Acute on chronic systolic heart failure. Patient with previous diagnosis and followed at the [place]. Coronary artery disease. History of CABG X3 2012 NSTEMI Ischemic cardiomyopathy. EF 25% Autonomic imbalance/syncope. Right shoulder pain 09/10/2020. Follow-up echocardiogram. Cardiology consultation pending. BNP significantly elevated at 39,[address] scan reveals only small left pleural effusion. Elevated D-dimer but CTA negative for PE. Etiology of syncope secondary to orthostasis and vasovagal from bowel movement. Await cardiology recommendations. Check right shoulder x-ray. 09/11/2020. Continue guideline directed medical therapy for coronary artery disease and acute on chronic systolic heart failure. Cardiology recommends outpatient 30-day event monitor for possible ventricular dysrhythmia. Right shoulder x-ray reveals possible rotator cuff tear. MRI of the right shoulder as an outpatient 09/12/2020. Cardiology recommends for ischemic evaluation with stress test in a.m. Patient will also need evaluation for AICD. Restarted home meds. Attempted to contact spouse at 's request @ [phone] but no answer. History Interval history: No new issues overnight. Hospitalist Physical - Constitutional Vitals: Temp Pulse Resp BP Pulse Ox 97.5 F L 87 20 146/94 86 09/12/20 03:56 09/12/20 03:56 09/12/20 09:57 09/12/20 03:56 09/12/20 03:56 General appearance: Present: no acute distress HEART Score - HEART Score Troponin: Troponin T 0.061 ng/mL (0.00-0.029) H 09/09/20 12:22 Results - Labs CBC & Chem 7: 09/09/20 12:22 09/10/20 04:15 Labs: Laboratory Last Values WBC 5.8 K/mm3 (4.5-11.0) 09/09/20 12:22 RBC 3.62 M/mm3 (3.65-5.03) L 09/09/20 12:22 Hgb 10.3 gm/dl (11.8-15.2) L 09/09/20 12:22 Hct 32.3 % (35.5-45.6) L 09/09/20 12:22 MCV 89 fl (84-94) 09/09/20 12:22 MCH 29 pg (28-32) 09/09/20 12:22 MCHC 32 % (32-34) 09/09/20 12:22 RDW 20.8 % (13.2-15.2) H 09/09/20 12:22 Plt Count 170 K/mm3 (140-440) 09/09/20 12:22 Lymph % (Auto) 7.8 % (13.4-35.0) L 09/09/20 12:22 [place] % (Auto) 10.8 % (0.0-7.3) H 09/09/20 12:22 Eos % (Auto) 0.6 % (0.0-4.3) 09/09/20 12:22 Baso % (Auto) 0.5 % (0.0-1.8) 09/09/20 12:22 Lymph # (Auto) 0.5 K/mm3 (1.2-5.4) L 09/09/20 12:22 [place] # (Auto) 0.6 K/mm3 (0.0-0.8) 09/09/20 12:22 Eos # (Auto) 0.0 K/mm3 (0.0-0.4) 09/09/20 12:22 Baso # (Auto) 0.0 K/mm3 (0.0-0.1) 09/09/20 12:22 Seg Neutrophils % 80.3 % (40.0-70.0) H 09/09/20 12:22 Seg Neutrophils # 4.7 K/mm3 (1.8-7.7) 09/09/20 12:22 PT 19.0 Sec. (12.2-14.9) H 09/09/20 12:22 INR 1.53 (0.87-1.13) H 09/09/20 12:22 APTT 37.1 Sec. (24.2-36.6) H 09/09/20 12:22 D-Dimer 1679.87 ng/mlDDU (0-234) H 09/09/20 12:22 Sodium 143 mmol/L (137-145) 09/10/20 04:15 Potassium 3.7 mmol/L (3.6-5.0) 09/10/20 04:15 Chloride 108.0 mmol/L (98-107) H 09/10/20 04:15 Carbon Dioxide 25 mmol/L (22-30) 09/10/20 04:15 Anion Gap 14 mmol/L 09/10/20 04:15 BUN 12 mg/dL (9-20) 09/10/20 04:15 Creatinine 1.1 mg/dL (0.8-1.3) 09/10/20 04:15 Estimated GFR > 60 ml/min 09/10/20 04:15 BUN/Creatinine Ratio 11 % 09/10/20 04:15 Glucose 78 mg/dL (75-100) 09/10/20 04:15 Calcium 8.6 mg/dL (8.4-10.2) 09/10/20 04:15 Magnesium 1.90 mg/dL (1.7-2.3) 09/09/20 18:19 Troponin T 0.061 ng/mL (0.00-0.029) H 09/09/20 12:22 NT-Pro-B Natriuret Pep 88030 pg/mL (0-900) H 09/09/20 12:22 Triglycerides 80 mg/dL (2-149) 09/09/20 12:22 Cholesterol 169 mg/dL (50-199) 09/09/20 12:22 LDL Cholesterol Direct 92 mg/dL (50-130) 09/09/20 12:22 HDL Cholesterol 69 mg/dL (40-59) H 09/09/20 12:22 Cholesterol/HDL Ratio 2.44 % 09/09/20 12:22 TSH 1.530 mlU/mL (0.270-4.200) 09/09/20 18:19 Free T4 1.49 ng/dL (0.76-1.46) H 09/09/20 18:19 [place]/IV: Voiding Method Urinal Active Medications - Current Medications Current Medications: Generic Name Dose Route Start Last Admin Trade Name Freq PRN Reason Stop Dose Admin Acetaminophen 650 mg 09/09/20 18:07 Acetaminophen 325 Mg Tab PO Q4H PRN Pain MILD(1-3)/Fever >100.5/ESQUIVEL Albuterol 2.5 mg 09/09/20 18:07 Albuterol 2.5 Mg/3 Ml Nebu IH Q4HRT PRN Shortness Of Breath Carvedilol 6.25 mg 09/10/20 22:00 09/12/20 09:58 Carvedilol 6.25 Mg Tab PO 6.25 mg BID PANKAJ Administration Clopidogrel Bisulfate 75 mg 09/11/20 10:00 09/12/20 09:58 Clopidogrel 75 Mg Tab PO 75 mg QDAY PANKAJ Administration Heparin Sodium (Porcine) 5,000 unit 09/09/20 22:00 09/12/20 09:58 Heparin 5,000 Unit/1 Ml Vial SUB-Q 5,000 unit Q12HR PANKAJ Administration Hydromorphone HCl 0.5 mg 09/09/20 18:07 09/11/20 20:40 Hydromorphone 1 Mg/1 Ml Inj IV 0.5 mg Q12H PRN Administration Pain , Severe (7-10) Lisinopril 5 mg 09/11/20 10:00 09/12/20 09:58 Lisinopril 5 Mg Tab PO 5 mg QDAY PANKAJ Administration Ondansetron HCl 4 mg 09/09/20 18:07 Ondansetron 4 Mg/2 Ml Inj IV Q8H PRN Nausea And Vomiting Oxycodone/Acetaminophen 1 tab 09/09/20 18:07 09/12/20 09:57 Oxycodone /Acetaminophen 5-325mg Tab PO 1 tab Q8H PRN Administration Pain, Moderate (4-6) Sodium Chloride 10 ml 09/09/20 22:00 09/11/20 21:08 Sodium Chloride 0.9% 10 Ml Flush Syringe IV 10 ml BID PANKAJ Administration Sodium Chloride 10 ml 09/09/20 18:07 Sodium Chloride 0.9% 10 Ml Flush Syringe IV PRN PRN LINE FLUSH
[2020-09-12] MEDS: predniSONE 10 MG TAB PO SCH (13:18)
[2020-09-12] MEDS: levoFLOXacin 250 MG TAB PO SCH (13:19)
[2020-09-12] MEDS ORDERED: CIPROFLOXACIN HCL 250 MG PO SCH (22:00)
[2020-09-12] MEDS ORDERED: PYRIDOSTIGMINE BROMIDE 30 MG PO SCH (22:00)
[2020-09-12] MEDS ORDERED: LISINOPRIL 20 MG TAB PO SCH (22:00)
--- NOTE | 2020-09-13 08:35 | Progress Note ---
Assessment and Plan Assessment and plan: Acute on chronic systolic heart failure. EF 15 to 20% Coronary artery disease. History of CABG X3 2012 NSTEMI Ischemic cardiomyopathy. EF 25% Myasthenia gravis Autonomic imbalance/syncope. Right shoulder pain 09/10/2020. Follow-up echocardiogram. Cardiology consultation pending. BNP significantly elevated at 39,[address] scan reveals only small left pleural effusion. Elevated D-dimer but CTA negative for PE. Etiology of syncope secondary to orthostasis and vasovagal from bowel movement. Await cardiology recommendations. Check right shoulder x-ray. 09/11/2020. Continue guideline directed medical therapy for coronary artery disease and acute on chronic systolic heart failure. Cardiology recommends outpatient 30-day event monitor for possible ventricular dysrhythmia. Right shoulder x-ray reveals possible rotator cuff tear. MRI of the right shoulder as an outpatient 09/12/2020. Cardiology recommends for ischemic evaluation with stress test in a.m. Patient will also need evaluation for AICD. Restarted home meds. Attempted to contact spouse at 's request @ [phone] but no answer. 09/13/2020. Patient to undergo ischemic evaluation with stress test this morn ing. Echocardiogram revealed left ventricular severely dilated with systolic function severely decreased an EF of 15 to 20%. Patient also with mild concentric left ventricular hypertrophy. AICD evaluation per cardiology recommendations. Continue pyridostigmine for myasthenia gravis. Continue home Levaquin for Pseudomonas left knee infection per patient. Also, await PT recommendations for discharge disposition. History Interval history: No new issues overnight. Hospitalist Physical - Constitutional Vitals: Temp Pulse Resp BP Pulse Ox 98.0 F 83 18 148/93 99 09/13/20 04:32 09/13/20 04:32 09/13/20 04:32 09/13/20 04:32 09/13/20 04:32 General appearance: Present: no acute distress - EENT Eyes: Present: PERRL, EOM intact ENT: hearing intact, clear oral mucosa, dentition normal - Neck Neck: Present: supple, normal ROM - Respiratory Respiratory effort: normal Respiratory: bilateral: CTA - Cardiovascular Rhythm: regular Heart Sounds: Present: S1 & S2. Absent: gallop, rub - Extremities Extremities: no ischemia, No edema, Full ROM - Abdominal General gastrointestinal: soft, non-tender, non-distended, normal bowel sounds - Integumentary Integumentary: Present: clear, warm, dry - Neurologic Neurologic: CNII-XII intact, moves all extremities HEART Score - HEART Score Troponin: Troponin T 0.061 ng/mL (0.00-0.029) H 09/09/20 12:22 Results - Labs CBC & Chem 7: 09/09/20 12:22 09/10/20 04:15 Labs: Laboratory Last Values WBC 5.8 K/mm3 (4.5-11.0) 09/09/20 12:22 RBC 3.62 M/mm3 (3.65-5.03) L 09/09/20 12:22 Hgb 10.3 gm/dl (11.8-15.2) L 09/09/20 12:22 Hct 32.3 % (35.5-45.6) L 09/09/20 12:22 MCV 89 fl (84-94) 09/09/20 12:22 MCH 29 pg (28-32) 09/09/20 12:22 MCHC 32 % (32-34) 09/09/20 12:22 RDW 20.8 % (13.2-15.2) H 09/09/20 12:22 Plt Count 170 K/mm3 (140-440) 09/09/20 12:22 Lymph % (Auto) 7.8 % (13.4-35.0) L 09/09/20 12:22 [place] % (Auto) 10.8 % (0.0-7.3) H 09/09/20 12:22 Eos % (Auto) 0.6 % (0.0-4.3) 09/09/20 12:22 Baso % (Auto) 0.5 % (0.0-1.8) 09/09/20 12:22 Lymph # (Auto) 0.5 K/mm3 (1.2-5.4) L 09/09/20 12:22 [place] # (Auto) 0.6 K/mm3 (0.0-0.8) 09/09/20 12:22 Eos # (Auto) 0.0 K/mm3 (0.0-0.4) 09/09/20 12:22 Baso # (Auto) 0.0 K/mm3 (0.0-0.1) 09/09/20 12:22 Seg Neutrophils % 80.3 % (40.0-70.0) H 09/09/20 12:22 Seg Neutrophils # 4.7 K/mm3 (1.8-7.7) 09/09/20 12:22 PT 19.0 Sec. (12.2-14.9) H 09/09/20 12:22 INR 1.53 (0.87-1.13) H 09/09/20 12:22 APTT 37.1 Sec. (24.2-36.6) H 09/09/20 12:22 D-Dimer 1679.87 ng/mlDDU (0-234) H 09/09/20 12:22 Sodium 143 mmol/L (137-145) 09/10/20 04:15 Potassium 3.7 mmol/L (3.6-5.0) 09/10/20 04:15 Chloride 108.0 mmol/L (98-107) H 09/10/20 04:15 Carbon Dioxide 25 mmol/L (22-30) 09/10/20 04:15 Anion Gap 14 mmol/L 09/10/20 04:15 BUN 12 mg/dL (9-20) 09/10/20 04:15 Creatinine 1.1 mg/dL (0.8-1.3) 09/10/20 04:15 Estimated GFR > 60 ml/min 09/10/20 04:15 BUN/Creatinine Ratio 11 % 09/10/20 04:15 Glucose 78 mg/dL (75-100) 09/10/20 04:15 POC Glucose 83 mg/dL (70-105) 09/13/20 08:21 Calcium 8.6 mg/dL (8.4-10.2) 09/10/20 04:15 Magnesium 1.90 mg/dL (1.7-2.3) 09/09/20 18:19 Troponin T 0.061 ng/mL (0.00-0.029) H 09/09/20 12:22 NT-Pro-B Natriuret Pep 91126 pg/mL (0-900) H 09/09/20 12:22 Triglycerides 80 mg/dL (2-149) 09/09/20 12:22 Cholesterol 169 mg/dL (50-199) 09/09/20 12:22 LDL Cholesterol Direct 92 mg/dL (50-130) 09/09/20 12:22 HDL Cholesterol 69 mg/dL (40-59) H 09/09/20 12:22 Cholesterol/HDL Ratio 2.44 % 09/09/20 12:22 TSH 1.530 mlU/mL (0.270-4.200) 09/09/20 18:19 Free T4 1.49 ng/dL (0.76-1.46) H 09/09/20 18:19 [place]/IV: Voiding Method Urinal Active Medications - Current Medications Current Medications: Generic Name Dose Route Start Last Admin Trade Name Freq PRN Reason Stop Dose Admin Acetaminophen 650 mg 09/09/20 18:07 Acetaminophen 325 Mg Tab PO Q4H PRN Pain MILD(1-3)/Fever >100.5/ESQUIVEL Albuterol 2.5 mg 09/09/20 18:07 Albuterol 2.5 Mg/3 Ml Nebu IH Q4HRT PRN Shortness Of Breath Carvedilol 6.25 mg 09/10/20 22:00 09/12/20 21:47 Carvedilol 6.25 Mg Tab PO 6.25 mg BID PANKAJ Administration Clopidogrel Bisulfate 75 mg 09/11/20 10:00 09/12/20 09:58 Clopidogrel 75 Mg Tab PO 75 mg QDAY PANKAJ Administration Heparin Sodium (Porcine) 5,000 unit 09/09/20 22:00 09/12/20 21:47 Heparin 5,000 Unit/1 Ml Vial SUB-Q 5,000 unit Q12HR PANKAJ Administration Hydromorphone HCl 0.5 mg 09/09/20 18:07 09/11/20 20:40 Hydromorphone 1 Mg/1 Ml Inj IV 0.5 mg Q12H PRN Administration Pain , Severe (7-10) Levofloxacin 250 mg 09/12/20 12:00 09/12/20 13:19 Levofloxacin 250 Mg Tab PO 250 mg Q24H PANKAJ Administration Lisinopril 5 mg 09/11/20 10:00 09/12/20 09:58 Lisinopril 5 Mg Tab PO 5 mg QDAY PANKAJ Administration Miscellaneous Medication 15 mg 09/12/20 22:00 Pyridostigmine [place] [Pyridostigmine [place]] PO BID PANKAJ Ondansetron HCl 4 mg 09/09/20 18:07 Ondansetron 4 Mg/2 Ml Inj IV Q8H PRN Nausea And Vomiting Oxycodone/Acetaminophen 1 tab 09/09/20 18:07 09/12/20 09:57 Oxycodone /Acetaminophen 5-325mg Tab PO 1 tab Q8H PRN Administration Pain, Moderate (4-6) Prednisone 10 mg 09/12/20 11:00 09/12/20 13:18 Prednisone 10 Mg Tab PO 10 mg QDAY PANKAJ Administration Sodium Chloride 10 ml 09/09/20 22:00 09/12/20 21:47 Sodium Chloride 0.9% 10 Ml Flush Syringe IV 10 ml BID PANKAJ Administration Sodium Chloride 10 ml 09/09/20 18:07 Sodium Chloride 0.9% 10 Ml Flush Syringe IV PRN PRN LINE FLUSH
[2020-09-13] MEDS ORDERED: REGADENOSON 0.4 MG/5 ML INJ IV ONE ×2 (08:55→08:57)
--- NOTE | 2020-09-13 11:33 | Nuclear Medicine Report ---
APPROVED REPORT Exam: Nuclear Stress Test Indication: Chest pain BMI: 0 Stress Test Details Stress Test: Pharmacologic stress testing performed using 0.4 mg of regadenoson per 5 mL given IV over 10 seconds. HR Resting HR: 70 bpm Max HR Achieved: 79 bpm Max Heart Rate (APMHR): 147 bpm Target HR (85% APMHR): 124 bpm % of APMHR: 53 Recovery HR: 75 bpm HR response to stress: Normal HR response to stress BP Resting BP: 136/71 mmHg Max BP: 152/94 mmHg Recovery BP: 141/77 mmHg BP response to stress: Normal blood pressure response to stress. ECG Resting ECG: Sinus Rhythm, RBBB Stress ECG: Sinus Rhythm, RBBB ST Change: None Arrhythmia: None, APC's Recovery ECG: Sinus Rhythm, RBBB Recovery ST Change: None Recovery Arrhythmia: None, APC Clinical Reason for Termination: Completed protocol Stress Symptoms: None Stress ECG Conclusion No chest pain and no ST changes with pharmacologic stress testing, myocardial perfusion images are pending for final test interpretation. NM EXAM: Myocardial Perfusion REST/STRESS Imaging Protocol: Rest Tc-99m/Stress Tc-99m 1 day Resting Data Rest SPECT myocardial perfusion imaging was performed in supine position 45 minutes following the intravenous injection of 10 mCi of Tc-99m Myoview. Time of rest injection: 0915 Pharmacologic Stress Pharmacologic stress test was performed by injecting Regadenoson 0.4 mg IV push followed by the intravenous injection of 28 mCi of Tc-99m Myoview. Time of stress injection: 1030 Gated Stress SPECT was performed 30 minutes after stress injection. The images were gated to evaluate regional wall motion and calculate left ventricular ejection fraction. Study Quality Study: excellent Lung Uptake: Normal Study Data TID = 1.19. Perfusion Wall Motion There is a large area of akinesis in the basal segment of the inferolateral wall which is seen on the stress images as well as the resting images. Severely decreased left ventricular systolic function. Nuclear Conclusion ECG Findings: negative for ischemia Clinical Findings: negative for ischemia Nuclear Findings: negative for ischemia Left Ventricular Function: abnormal Risk Study: moderate Perfusion images show a dilated cardiomyopathy with severe left ventricular dysfunction. There is a large fixed inferior lateral defect consistent with prior infarct, with minimal to no significant reversibility noted on the resting study. This is consistent with a prior inferolateral infarct. Clinical correlation is recommended. Conclusion No chest pain and no ST changes with pharmacologic stress testing, myocardial perfusion images are pending for final test interpretation.
[2020-09-13] MEDS: HEPARIN 5,000 UNIT/1 ML VIAL SUB-Q SCH ×2 (12:07→22:33)
[2020-09-13] MEDS: CLOPIDOGREL 75 MG TAB PO SCH (12:07)
[2020-09-13] MEDS: carvediloL 6.25 MG TAB PO SCH ×2 (12:07→22:33)
[2020-09-13] MEDS: LISINOPRIL 5 MG TAB PO SCH (12:08)
[2020-09-13] MEDS: oxyCODONE /ACETAMINOPHEN 5-325MG TAB PO PRN (12:08)
[2020-09-13] MEDS: predniSONE 10 MG TAB PO SCH (12:08)
[2020-09-13] MEDS: levoFLOXacin 250 MG TAB PO SCH (12:08)
--- NOTE | 2020-09-13 12:14 | Event Note ---
Date: 09/13/20 Patient underwent a Lexiscan stress test today with myocardial perfusion imaging. There was a dilated cardiomyopathy with a large fixed inferior and inferior lateral defect. The defect appears consistent with a prior myocardial infarction in this territory. There was minimal to no significant reversible ischemia. The patient is recommended for continued medical therapy and aggressive risk factor modification. He is stable for cardiac discharge on medications. As outpatient, he is recommended to [facility] with [facility] in [facility] to 5 days and reconsider the recommendation given to him previously (which he has so far declined) for primary ICD implant.
--- NOTE | 2020-09-13 17:30 | Electrocardiograph Report ---
[facility] Test Date: 2020-09-09 Test Time: 11:31:09 Pat Name: KIERSTEN TOLENTINO Department: Room: A473 1 Gender: M [employer]: NORMAN : 1945 Requested By: ZACHARIAH BERRY Order Number: [id number] Reading MD: Amaya Ogden Measurements Intervals [place] Rate: 83 P: 29 ME: 153 QRS: -26 QRSD: 111 T: 154 QT: 482 QTc: 566 Interpretive Statements Sinus arrhythmia Probable left atrial enlargement LVH with secondary repolarization abnormality Inferior infarct, old Prolonged QT interval No previous ECG available for comparison Electronically Signed On 09-13-2020 17:29:59 EDT by Amaya Ogden
[2020-09-14] MEDS: HEPARIN 5,000 UNIT/1 ML VIAL SUB-Q SCH (09:48)
[2020-09-14] MEDS: oxyCODONE /ACETAMINOPHEN 5-325MG TAB PO PRN (09:48)
[2020-09-14] MEDS: CLOPIDOGREL 75 MG TAB PO SCH (09:48)
[2020-09-14] MEDS: LISINOPRIL 5 MG TAB PO SCH (09:49)
[2020-09-14] MEDS: carvediloL 6.25 MG TAB PO SCH (09:49)
[2020-09-14] MEDS: predniSONE 10 MG TAB PO SCH (09:49)
--- NOTE | 2020-09-14 10:07 | Progress Note ---
Assessment and Plan Pre-syncope Hx of Ischemic CMP LVEF 15-20% by echo this presentation MPI: Large fixed inferior and inferior lateral defect. The defect appears consistent with a prior myocardial infarction in this territory. No reversible ischemia. declined recommendations for ICD implant in the past Hx of CAD with 3v CABG in 2012 follows with the ID ASA allergy Myasthenia gravis on chronic prednisone Hypertension Sleep apnea Hx of Pulmonary embolism and DVT Eliquis for anticoagulation. Continue medical therapy for ischemic cardiomyopathy and coronary artery disease. Stable cardiac munoz for discharge. As outpatient, he is recommended to follow-up with his [facility] in [facility]-5 days and reconsider the recommendation given to him previously for primary ICD implant. Subjective Date of service: 09/14/20 Interval history: Resting in bed comfortably. No cardiac events reported. Objective Vital Signs Temp Pulse Resp BP Pulse Ox 09/14/20 08:24 69 09/14/20 08:17 98.5 F 75 18 133/87 98 09/14/20 05:07 98.2 F 69 16 122/78 98 09/14/20 00:00 72 09/13/20 22:47 97.6 F 66 16 117/73 99 09/13/20 22:33 64 120/73 09/13/20 20:00 18 97 09/13/20 19:25 97.5 F L 64 16 120/73 98 09/13/20 16:32 98.7 F 67 18 136/87 93 09/13/20 16:00 67 09/13/20 12:08 20 09/13/20 11:49 98.7 F 74 20 147/83 97 09/13/20 10:36 141/77 09/13/20 10:35 142/79 09/13/20 10:33 143/78 09/13/20 10:32 144/83 09/13/20 10:30 136/71 09/13/20 10:29 139/83 09/13/20 10:10 152/94 - Physical Examination General: No Apparent Distress HEENT: Positive: PERRL Neck: Positive: trachea midline Cardiac: Positive: Reg Rate and Rhythm Lungs: Positive: Decreased Breath Sounds Neuro: Positive: Grossly Intact Extremities: Absent: edema - EKG Sinus rhythms and dysrhythmias: sinus rhythm
--- NOTE | 2020-09-14 11:37 | Discharge Summary ---
Providers - Providers Date of Admission: 09/10/20 11:21 Date of discharge: 09/14/20 Attending physician: JORY STEVENS MD 09/09/20 18:07 Consult to Physician [CONS] Routine Comment: Consulting Provider: ANA MARÍA BURROUGHS Physician Instructions: Reason For Exam: chf 09/10/20 06:55 Consult to Wound/ET Nurse [CONS] Routine Reason For Exam: wound eval RIGHT [place] 09/10/20 12:14 Physical Therapy Evaluation and Treat [CONS] Routine Comment: pt. walks with walker and cane Reason For Exam: PT evaland treat for abnormal gait 09/10/20 12:15 Occupational Therapy Evaluate and Treat [CONS] Routine Comment: pt. needs help with ADLs Reason For Exam: OT to evaland treat for generalized weakness Primary care physician: [employer] Hospitalization Condition: Good Hospital course: Acute on chronic systolic heart failure. EF 15 to 20% Coronary artery disease. History of CABG X3 2012 NSTEMI Ischemic cardiomyopathy. EF 25% Myasthenia gravis Autonomic imbalance/syncope. Right shoulder pain 09/10/2020. Follow-up echocardiogram. Cardiology consultation pending. BNP significantly elevated at 39,[address] scan reveals only small left pleural effusion. Elevated D-dimer but CTA negative for PE. Etiology of syncope secondary to orthostasis and vasovagal from bowel movement. Await cardiology recommendations. Check right shoulder x-ray. 09/11/2020. Continue guideline directed medical therapy for coronary artery disease and acute on chronic systolic heart failure. Cardiology recommends outpatient 30-day event monitor for possible ventricular dysrhythmia. Right shoulder x-ray reveals possible rotator cuff tear. MRI of the right shoulder as an outpatient 09/12/2020. Cardiology recommends for ischemic evaluation with stress test in a.m. Patient will also need evaluation for AICD. Restarted home meds. Attempted to contact spouse at 's request @ [phone] but no answer. 09/13/2020. Patient to undergo ischemic evaluation with stress test this morning. Echocardiogram revealed left ventricular severely dilated with systolic function severely decreased an EF of 15 to 20%. Patient also with mild concentric left ventricular hypertrophy. AICD evaluation per cardiology recommendations. Continue pyridostigmine for myasthenia gravis. Continue home Levaquin for Pseudomonas left knee infection per patient. Also, await PT recommendations for discharge disposition. 09/14/20: pt cleared for DC by cardiology, pt to follow up at the [facility] with cardiology for ICD placement. Also spoke with the patient pertaining to his left knee, patient will follow up with a sternal surgeon and continue taking antibiotics as prescribed. Disposition: DC/[place]-06 HOME UNDER HOME [facility] Final Discharge Diagnosis (Prints w/discharge instructions): Acute on chronic systolic heart failure. EF 15 to 20%. Coronary artery disease. History of CABG X3 2011. NSTEMI. Ischemic cardiomyopathy. EF 25%. Myasthenia gravis. Autonomic imbalance/syncope. Right shoulder pain Time spent for discharge: 35 minutes Core Measure Documentation - Palliative Care Palliative Care/ Comfort Measures: Not Applicable - Core Measures Any of the following diagnoses?: heart failure - Heart Failure Discharge Requirements ASHLEY/ARB for LVSD if EF <40%: Yes Beta stanislav at discharge: Yes Exam - Physical Exam Narrative exam: General appearance: no acute distress, well-nourished EENT: PERRL, EOM intact, hearing intact, clear oral mucosa Neck: Present: supple, normal ROM Respiratory: bilateral CTA, negative: rales, rhonchi, wheezing Cardiovascular: Regular rate/rhythm, Normal S1 & S2. No gallop, rub Extremities: Left knee with swelling, decreased range of motion, no ischemia Abdominal: soft, no tenderness, non-distended, normal bowel sounds Integumentary: Present: clear, warm, dry no wounds, no erythema noted Psychiatric: appropriate mood/affect, intact judgment & insight Neurologic: CNII-XII intact, moves all extremities, no sensory or motor abnormalities - Constitutional Vitals: Temp Pulse Resp BP Pulse Ox 98.5 F 69 18 133/87 98 09/14/20 08:17 09/14/20 08:24 09/14/20 08:17 09/14/20 08:17 09/14/20 08:17 Plan Activity: no restrictions Weight Bearing Status: Weight Bear as Tolerated Diet: low salt Follow up with: PRIMARY CAREMD [Primary Care Provider] - 3-5 Days (Please 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 Please discuss with him ICD placement. Please also follow-up with the general surgeon who is managing your chronic left knee infection. Please continue taking the antibiotics as prescribed.) Prescriptions: carvediloL [Coreg] 6.25 mg PO BID #60 tablet levoFLOXacin [Levaquin TAB] 250 mg PO Q24H #10 tablet Clopidogrel [Plavix] 75 mg PO QDAY #30 tablet predniSONE 10 mg PO QDAY #20 lisinopriL [Zestril TAB] 5 mg PO QDAY #30 tablet
[2020-09-14 17:08] VITALS: BP 114/74
== END 2020-09-14 18:35 | disposition home health service (06) | DRG 280 ==
LOC: ED 11:03 → 4A 18:07 → OBSVTOIN 09-10 11:21
PROVIDERS: ADMIT Internal Medicine; ATTEND Family Medicine
DX: I21.4 Non-ST elevation (NSTEMI) myocardial infarction (principal); I50.43 Acute on chronic combined systolic (congestive) and diastolic (congestive) heart failure; I42.0 Dilated cardiomyopathy; R55 Syncope and collapse; I25.10 Atherosclerotic heart disease of native coronary artery without angina pectoris; I25.5 Ischemic cardiomyopathy; G90.8 Other disorders of autonomic nervous system; G47.33 Obstructive sleep apnea (adult) (pediatric); I11.0 Hypertensive heart disease with heart failure; G70.00 Myasthenia gravis without (acute) exacerbation; M25.511 Pain in right shoulder; Z88.8 Allergy status to other drugs, medicaments and biological substances; Z95.1 Presence of aortocoronary bypass graft; Z88.2 Allergy status to sulfonamides; Z88.6 Allergy status to analgesic agent; Z79.01 Long term (current) use of anticoagulants; Z86.711 Personal history of pulmonary embolism; Z86.718 Personal history of other venous thrombosis and embolism
CPT/HCPCS: 36415; 70450; 71045; 71275; 78452; 80048; 80061; 82962; 83735; 83880; 84439; 84443; 84484; 85025; 85379; 85610; 85730; 93005; 93017; 93306; 96374; G0378; A9502; J1170; J1644; J1940; J2785; J7512; Q9967